=== PATIENT | male | born 1960 | race Caucasian/White ===

== ENCOUNTER 2021-10-09 06:48 | Day surgery (SDC) | payer MEDICARE ==
[2021-10-09] MEDS ORDERED: Xylocaine 1% Vial 30 ML PF IJ ONE (06:49)
[2021-10-09] MEDS ORDERED: BUPIVACAINE 0.5% VIAL IJ ONE (06:49)
[2021-10-09] MEDS ORDERED: Depo-Medrol 40 MG/ML IM ONE (06:49)
[2021-10-09] MEDS ORDERED: Lactated Ringers 1,000 ML IV ONE (08:22)
--- NOTE | 2021-10-09 10:06 | XRAY ---
Indication: Left L4-S1 RFA. Intraoperative fluoroscopy provided for 36 seconds. 3 digital spot images submitted for interpretation demonstrates posterior needle tips projecting over the expected left L4-S1 nerve roots. Correlate with intraoperative findings/report.
--- NOTE | 2021-10-09 10:06 | XRAY ---
36 seconds of fluoroscopy was used in surgery for a left L4-S1 RFA.
== END 2021-10-09 08:48 | disposition home or self-care (01) ==
LOC: SDC-PAIN 06:48
PROVIDERS: ATTEND Psychiatry & Neurology Pain Medicine
DX: M47.816 Spondylosis without myelopathy or radiculopathy, lumbar region (principal); E11.9 Type 2 diabetes mellitus without complications; I10 Essential (primary) hypertension
CPT/HCPCS: 64635; 64636; 72100; 77002; 82947; J1030; J2001

== ENCOUNTER 2021-10-15 07:53 | Day surgery (SDC) | payer MEDICARE ==
[2021-10-15] MEDS ORDERED: BUPIVACAINE 0.5% VIAL IJ ONE (07:54)
[2021-10-15] MEDS ORDERED: Xylocaine 1% Vial 30 ML PF IJ ONE (07:54)
[2021-10-15] MEDS ORDERED: Depo-Medrol 40 MG/ML IM ONE (07:54)
[2021-10-15] MEDS ORDERED: Lactated Ringers 1,000 ML IV ONE (09:06)
--- NOTE | 2021-10-15 10:22 | XRAY ---
Indication: Right L4-S1 RFA. Intraoperative fluoroscopy provided for 34 seconds. 2 digital spot image submitted for interpretation demonstrates posterior needle tips projecting over the expected right L4-S1 nerve roots. Correlate with intraoperative findings/report.
--- NOTE | 2021-10-15 12:12 | XRAY ---
34 seconds fluoroscopy time in surgery for right L4-S1 RFA.
== END 2021-10-15 10:10 | disposition home or self-care (01) ==
LOC: SDC-PAIN 07:53
PROVIDERS: ATTEND Psychiatry & Neurology Pain Medicine
DX: M47.816 Spondylosis without myelopathy or radiculopathy, lumbar region (principal); E11.9 Type 2 diabetes mellitus without complications; I10 Essential (primary) hypertension; Z79.899 Other long term (current) drug therapy
CPT/HCPCS: 64635; 64636; 72100; 77002; 82947; J1030; J2001

== ENCOUNTER 2023-03-31 15:09 | Day surgery (SDC) | payer MEDICARE ==
[2023-03-31] MEDS ORDERED: Depo-Medrol 40 MG/ML IM ONE (15:10)
[2023-03-31] MEDS ORDERED: BUPIVACAINE 0.5% VIAL IJ ONE (15:10)
[2023-03-31] MEDS ORDERED: LIDOCAINE HCL 1% 50 MG/5 ML VL PF IJ ONE (15:10)
[2023-03-31] MEDS ORDERED: Lactated Ringers 1,000 ML IV ONE (16:54)
--- NOTE | 2023-03-31 18:37 | XRAY ---
Indication: Left L4-S1 RFA. Intraoperative fluoroscopy provided for 37 seconds. 6 digital spot image submitted for interpretation demonstrates posterior needle tips projecting over the expected left L4-S1 nerve roots. Correlate with intraoperative findings/report.
--- NOTE | 2023-04-01 08:42 | XRAY ---
37 seconds of fluoroscopy was used in surgery for a left L4-S1 RFA.
== END 2023-03-31 17:05 | disposition home or self-care (01) ==
LOC: SDC-PAIN 15:09
PROVIDERS: ATTEND Psychiatry & Neurology Pain Medicine
DX: M47.816 Spondylosis without myelopathy or radiculopathy, lumbar region (principal)
CPT/HCPCS: 64635; 64636; 72100; 77002; 82947; J1030; J2001